=== PATIENT | female | born 1980 | race Asian ===

== ENCOUNTER 2025-03-19 08:51 | Outpatient (CLI) | payer OTHER | END 2025-03-19 08:52 | disposition home or self-care (01) | LOC: CSHMAMMO 08:51 | PROVIDERS: ATTEND Student in an Organized Health Care Education/Training Program | DX: Z12.31 Encounter for screening mammogram for malignant neoplasm of breast (principal); R92.333 Mammographic heterogeneous density, bilateral breasts | CPT/HCPCS: 77063; 77067 ==